=== PATIENT | male | born 1995 | race Caucasian/White ===

== ENCOUNTER 2019-07-25 23:21 | Emergency (ER) | payer BC ==
--- NOTE | 2019-07-25 23:33 | EDM.PDOC ---
ED HPI GENERAL MEDICAL PROBLEM - General Chief Complaint: Abdominal Pain Stated Complaint: UPPER ABD PAIN Time Seen by Provider: 07/25/19 23:40 Source of Information: Reports: Patient History Limitations: Reports: No Limitations, Intoxication - History of Present Illness Onset: Today Onset Date: 07/25/19 Onset Time: 22:30 Duration: Intermittent Location: Reports: Abdomen Quality: Reports: Sharp, Stabbing Severity: Severe Improves with: Reports: Other (Upright posture) Worsens with: Reports: Other (Lying down) Context: Reports: Other (After imbibing 12 beers today) Associated Symptoms: Denies: Confusion, Cough, Fever/Chills, Nausea/Vomiting epigastric Pain Score (Numeric/FACES): 7 - Related Data Allergies Allergy/AdvReac Type Severity Reaction Status Date / Time No Known Allergies Allergy Verified 07/25/19 23:31 Home Meds: Home Meds NK [No Known Home Meds] 07/25/19 [History] Past Medical History - Past Health History Medical/Surgical History: Denies Medical/Surgical History ED ROS GENERAL - Review of Systems Review Of Systems: See Below Constitutional: Reports: Decreased Appetite. Denies: Fever HEENT: Reports: No Symptoms Respiratory: Denies: Shortness of Breath Cardiovascular: Denies: Chest Pain GI/Abdominal: Reports: Abdominal Pain, Decreased Appetite, Nausea. Denies: Vomiting Musculoskeletal: Reports: No Symptoms Skin: Denies: Rash Neurological: Reports: No Symptoms Psychiatric: Reports: Agitation, Anxiety Hematologic/Lymphatic: Reports: No Symptoms ED EXAM, GI/ABD - Physical Exam Exam: See Below Text/Narrative:: Outside today at a picnic so exposed to multiple pollen scription given forAlbuterol inhaler to be obtained through [facility]. Definite odor of alcohol Exam Limited By: No Limitations General Appearance: Alert, WD/WN, Severe Distress Eyes: Bilateral: Normal Appearance, EOMI Ears: Normal External Exam Nose: Normal Inspection Throat/Mouth: Normal Inspection Neck: Normal Inspection Respiratory/Chest: No Respiratory Distress, Lungs Clear Cardiovascular: Normal Peripheral Pulses, Regular Rate, Rhythm GI/Abdominal Exam: No Distention (When the patient is lying down, the abdomen becomes rigid and I cannot check for a positive Tejada's or Mitchell sign), Rigid, Abnormal Bowel Sounds (No bowel sounds heard) Extremities: Normal Inspection, Normal Range of Motion Neurological: Alert, Oriented EKG INTERPRETATION EKG Date: 07/25/19 Time: 23:55 Rhythm: NSR [place]: Normal P-Wave: Present QRS: Normal ST-T: Normal Comparison: NA - No Prior EKG Course - Vital Signs Text/Narrative:: He is in agony when he lies down flat for abdominal exam. He absolutely refuses pain medication and states that he feels better when he stands upright. Differential diagnosis includes peptic ulcer disease, gastritis, perforated peptic ulcer, cholelithiasis, cholecystitis, pancreatitis, inferior ID. EKG & Laboratory evaluation essentially unremarkable except for elevated blood alcohol. CT results state "no acute findings to explain the patient's symptoms " Last Recorded V/S: Last Vital Signs Temp 36.2 C 07/25/19 23:33 Pulse 95 07/25/19 23:33 Resp 18 07/25/19 23:33 BP 136/59 L 07/25/19 23:33 Pulse Ox 98 07/25/19 23:33 - Orders/Labs/Meds Orders: Active Orders 24 hr Category Date Time Status EKG Documentation Completion [RC] ASDIRECTED Care 07/25/19 23:46 Active Sodium Chloride 0.9% [Normal Saline] 80 ml Med 07/26/19 00:45 Active IV ASDIRECTED EKG 12 Lead [EK] Stat Ther 07/25/19 23:45 Ordered Medication Orders Sodium Chloride (Normal Saline) 80 mls @ 3.5 mls/sec IV ASDIRECTED KAYLIE Last Admin: 07/26/19 00:41 Dose: 3.5 mls/sec Labs: Laboratory Tests 07/25/19 07/25/19 07/25/19 Range/Units 23:54 23:54 23:54 WBC 12.1 H (4.5-11.0) K/uL RBC 4.69 (4.30-5.90) M/uL Hgb 14.1 (12.0-15.0) g/dL Hct 41.3 (40.0-54.0) % MCV 88 (80-98) fL MCH 30 (27-31) pg MCHC 34 (32-36) % Plt Count 297 (150-400) K/uL PT 10.8 (9.5-12.0) sec INR 1.00 (0.80-1.20) Sodium 140 (140-148) mmol/L Potassium 3.4 L (3.6-5.2) mmol/L Chloride 103 (100-108) mmol/L Carbon Dioxide 26 (21-32) mmol/L Anion Gap 14.4 H (5.0-14.0) mmol/L BUN 14 (7-18) mg/dL Creatinine 1.0 (0.8-1.3) mg/dL Est Cr Clr Drug Dosing 130.95 mL/min Estimated GFR (MDRD) > 60 (>60) Glucose 106 (74-106) mg/dL Lactic Acid (0.4-2.0) mmol/L Calcium 8.2 L (8.5-10.1) mg/dL Total Bilirubin 0.3 (0.2-1.0) mg/dL AST 30 (15-37) U/L ALT 37 (12-78) U/L Alkaline Phosphatase 82 (46-116) U/L Troponin I (0.000-0.056) ng/mL Total Protein 7.9 (6.4-8.2) g/dL Albumin 4.3 (3.4-5.0) g/dL Globulin 3.6 H (2.3-3.5) g/dL Albumin/Globulin Ratio 1.2 (1.2-2.2) Lipase (73-393) U/L Urine Color (YELLOW) Urine Appearance (CLEAR) Urine pH (5.0-8.0) Ur Specific [place] (1.008-1.030) Urine Protein (NEGATIVE) mg/dL Urine Glucose (UA) (NEGATIVE) mg/dL Urine Ketones (NEGATIVE) mg/dL Urine Occult Blood (NEGATIVE) Urine Nitrite (NEGATIVE) Urine Bilirubin (NEGATIVE) Urine Urobilinogen (0.2-1.0) EU/dL Ur Leukocyte Esterase (NEGATIVE) Urine RBC (0-5) Urine WBC (0-5) Ur Epithelial Cells Amorphous Sediment Urine Bacteria Urine Mucus Urine Opiates Screen (NEGATIVE) Ur Oxycodone Screen (NEGATIVE) Urine Methadone Screen (NEGATIVE) Ur Propoxyphene Screen (NEGATIVE) Ur Barbiturates Screen (NEGATIVE) Ur Tricyclics Screen (NEGATIVE) Ur Phencyclidine Scrn (NEGATIVE) Ur Amphetamine Screen (NEGATIVE) U Methamphetamines Scrn (NEGATIVE) Urine MDMA Screen (NEGATIVE) U Benzodiazepines Scrn (NEGATIVE) U Cocaine Metab Screen (NEGATIVE) U Marijuana (THC) Screen (NEGATIVE) Ethyl Alcohol mg/dL 07/25/19 07/25/19 07/25/19 Range/Units 23:54 23:54 23:54 WBC (4.5-11.0) K/uL RBC (4.30-5.90) M/uL Hgb (12.0-15.0) g/dL Hct (40.0-54.0) % MCV (80-98) fL MCH (27-31) pg MCHC (32-36) % Plt Count (150-400) K/uL PT (9.5-12.0) sec INR (0.80-1.20) Sodium (140-148) mmol/L Potassium (3.6-5.2) mmol/L Chloride (100-108) mmol/L Carbon Dioxide (21-32) mmol/L Anion Gap (5.0-14.0) mmol/L BUN (7-18) mg/dL Creatinine (0.8-1.3) mg/dL Est Cr Clr Drug Dosing mL/min Estimated GFR (MDRD) (>60) Glucose (74-106) mg/dL Lactic Acid 1.6 (0.4-2.0) mmol/L Calcium (8.5-10.1) mg/dL Total Bilirubin (0.2-1.0) mg/dL AST (15-37) U/L ALT (12-78) U/L Alkaline Phosphatase (46-116) U/L Troponin I < 0.017 (0.000-0.056) ng/mL Total Protein (6.4-8.2) g/dL Albumin (3.4-5.0) g/dL Globulin (2.3-3.5) g/dL Albumin/Globulin Ratio (1.2-2.2) Lipase 210 (73-393) U/L Urine Color (YELLOW) Urine Appearance (CLEAR) Urine pH (5.0-8.0) Ur Specific [place] (1.008-1.030) Urine Protein (NEGATIVE) mg/dL Urine Glucose (UA) (NEGATIVE) mg/dL Urine Ketones (NEGATIVE) mg/dL Urine Occult Blood (NEGATIVE) Urine Nitrite (NEGATIVE) Urine Bilirubin (NEGATIVE) Urine Urobilinogen (0.2-1.0) EU/dL Ur Leukocyte Esterase (NEGATIVE) Urine RBC (0-5) Urine WBC (0-5) Ur Epithelial Cells Amorphous Sediment Urine Bacteria Urine Mucus Urine Opiates Screen (NEGATIVE) Ur Oxycodone Screen (NEGATIVE) Urine Methadone Screen (NEGATIVE) Ur Propoxyphene Screen (NEGATIVE) Ur Barbiturates Screen (NEGATIVE) Ur Tricyclics Screen (NEGATIVE) Ur Phencyclidine Scrn (NEGATIVE) Ur Amphetamine Screen (NEGATIVE) U Methamphetamines Scrn (NEGATIVE) Urine MDMA Screen (NEGATIVE) U Benzodiazepines Scrn (NEGATIVE) U Cocaine Metab Screen (NEGATIVE) U Marijuana (THC) Screen (NEGATIVE) Ethyl Alcohol 193 mg/dL 07/26/19 07/26/19 Range/Units 00:09 00:09 WBC (4.5-11.0) K/uL RBC (4.30-5.90) M/uL Hgb (12.0-15.0) g/dL Hct (40.0-54.0) % MCV (80-98) fL MCH (27-31) pg MCHC (32-36) % Plt Count (150-400) K/uL PT (9.5-12.0) sec INR (0.80-1.20) Sodium (140-148) mmol/L Potassium (3.6-5.2) mmol/L Chloride (100-108) mmol/L Carbon Dioxide (21-32) mmol/L Anion Gap (5.0-14.0) mmol/L BUN (7-18) mg/dL Creatinine (0.8-1.3) mg/dL Est Cr Clr Drug Dosing mL/min Estimated GFR (MDRD) (>60) Glucose (74-106) mg/dL Lactic Acid (0.4-2.0) mmol/L Calcium (8.5-10.1) mg/dL Total Bilirubin (0.2-1.0) mg/dL AST (15-37) U/L ALT (12-78) U/L Alkaline Phosphatase (46-116) U/L Troponin I (0.000-0.056) ng/mL Total Protein (6.4-8.2) g/dL Albumin (3.4-5.0) g/dL Globulin (2.3-3.5) g/dL Albumin/Globulin Ratio (1.2-2.2) Lipase (73-393) U/L Urine Color Yellow (YELLOW) Urine Appearance Clear (CLEAR) Urine pH 6.0 (5.0-8.0) Ur Specific [place] 1.020 (1.008-1.030) Urine Protein Negative (NEGATIVE) mg/dL Urine Glucose (UA) Negative (NEGATIVE) mg/dL Urine Ketones Negative (NEGATIVE) mg/dL Urine Occult Blood Negative (NEGATIVE) Urine Nitrite Negative (NEGATIVE) Urine Bilirubin Negative (NEGATIVE) Urine Urobilinogen 0.2 (0.2-1.0) EU/dL Ur Leukocyte Esterase Negative (NEGATIVE) Urine RBC 0-5 (0-5) Urine WBC 0-5 (0-5) Ur Epithelial Cells Rare Amorphous Sediment Not seen Urine Bacteria Few Urine Mucus Not seen Urine Opiates Screen Negative (NEGATIVE) Ur Oxycodone Screen Negative (NEGATIVE) Urine Methadone Screen Negative (NEGATIVE) Ur Propoxyphene Screen Negative (NEGATIVE) Ur Barbiturates Screen Negative (NEGATIVE) Ur Tricyclics Screen Negative (NEGATIVE) Ur Phencyclidine Scrn Negative (NEGATIVE) Ur Amphetamine Screen Negative (NEGATIVE) U Methamphetamines Scrn Negative (NEGATIVE) Urine MDMA Screen Negative (NEGATIVE) U Benzodiazepines Scrn Negative (NEGATIVE) U Cocaine Metab Screen Negative (NEGATIVE) U Marijuana (THC) Screen Negative (NEGATIVE) Ethyl Alcohol mg/dL Meds: Medications Generic Name Dose Route Start Last Admin Trade Name Freq PRN Reason Stop Dose Admin Sodium Chloride 80 mls @ 3.5 mls/sec 07/26/19 00:45 07/26/19 00:41 Normal Saline IV 3.5 mls/sec ASDIRECTED KAYLIE Administration Discontinued Medications Generic Name Dose Route Start Last Admin Trade Name Freq PRN Reason Stop Dose Admin Hydromorphone HCl 0.5 mg 07/25/19 23:47 Dilaudid IVPUSH 07/25/19 23:48 ONETIME ONE Sodium Chloride 1,000 mls @ 999 mls/hr 07/25/19 23:47 07/26/19 00:00 Normal Saline IV 07/26/19 00:47 999 mls/hr .BOLUS ONE Administration Iopamidol 132 ml 07/26/19 00:32 07/26/19 00:41 Isovue-300 (61%) IV 07/26/19 00:33 132 ml . DIRECTED ONE Administration Ondansetron HCl 4 mg 07/25/19 23:47 Zofran IVPUSH 07/25/19 23:48 ONETIME ONE Departure - Departure Time of Disposition: 01:43 Disposition: Home, Self-Care 01 Clinical Impression: Abdominal pain, Gastritis, Alcohol intoxication - Discharge Information Instructions: Gastritis, Adult, [id number], Binge-Drinking Information, Adult Referrals: PCP,None [Primary Care Provider] - Forms: ED Department Discharge Additional Instructions: Try to decrease your alcohol intake. Consider use of [id number] antacid several times a day (Tums or Prilosec). Sepsis Event Note - Focused Exam Vital Signs: Vital Signs Temp Pulse Resp BP Pulse Ox 07/25/19 23:33 36.2 C 95 18 136/59 L 98 Date Exam was Performed: 07/26/19 Time Exam was Performed: 01:41 - My Orders Last 24 Hours: My Active Orders 07/25/19 23:45 EKG 12 Lead [EK] Stat 07/25/19 23:46 EKG Documentation Completion [RC] ASDIRECTED 07/26/19 00:45 Sodium Chloride 0.9% [Normal Saline] 80 ml IV ASDIRECTED - Assessment/Plan Last 24 Hours: My Active Orders 07/25/19 23:45 EKG 12 Lead [EK] Stat 07/25/19 23:46 EKG Documentation Completion [RC] ASDIRECTED 07/26/19 00:45 Sodium Chloride 0.9% [Normal Saline] 80 ml IV ASDIRECTED
[2019-07-25] MEDS ORDERED: Sodium Chloride 0.9% 1,000 ML IV ONE (23:47)
[2019-07-25] MEDS ORDERED: HYDROmorphone 0.5 MG/0.5 ML Syringe IVPUSH ONE (23:47)
[2019-07-25] MEDS ORDERED: Ondansetron 4 MG/2 ML SDV IVPUSH ONE (23:47)
[2019-07-26] MEDS ORDERED: Iopamidol 612 MG/ML 150 ML Bottle IV ONE (00:32)
[2019-07-26] MEDS ORDERED: Sodium Chloride 0.9% 80 ML IV SCH (00:45)
--- NOTE | 2019-07-26 01:37 | CRLCT ---
INDICATION: Severe epigastric pain TECHNIQUE: Axial images were obtained from the diaphragm to the pubic symphysis. Reformats were obtained in the coronal and sagittal plane. IV Contrast: 132 cc Isovue-300 Oral Contrast: None COMPARISON: None. FINDINGS: Lower chest: Trace basilar discoid atelectasis. Liver: Unremarkable. Normal in size and attenuation. No masses. Gallbladder and bile ducts: Unremarkable. No stones or inflammation. No biliary dilatation. Spleen: Unremarkable. Normal in size without mass. Pancreas: Unremarkable. No mass or inflammation. Adrenal glands: Right adrenal calcifications suggesting prior infection or hemorrhage Kidneys: Unremarkable. No masses, stones, or hydronephrosis. Vasculature: Unremarkable. GI tract: Stomach is unremarkable. There are dilated loops of large or small intestine. Appendix unremarkable. Pelvis: Unremarkable. Bones: Partial sacralization on the left at L5-S1. IMPRESSION: No acute findings to explain the patient`s symptoms. No dilated bowel or localized inflammation. Please note that all CT scans at this facility use dose modulation, iterative reconstruction, and/or weight-based dosing when appropriate to reduce radiation dose to as low as reasonably achievable. Dictated by Evens Stephenson MD @ Jul 26 2019 1:31AM Signed by Dr. Evens Stephenson @ Jul 26 2019 1:36AM
== END 2019-07-26 01:47 | disposition home or self-care (01) ==
LOC: JP.ED 23:21 → MERGE 23:21 → JP.ED 07-26 01:47
DX: K29.70 Gastritis, unspecified, without bleeding (principal); F10.129 Alcohol abuse with intoxication, unspecified; Y90.6 Blood alcohol level of 120-199 mg/100 ml
CPT/HCPCS: 36415; 74177; 80053; 80305; 80307; 81001; 83605; 83690; 84484; 85027; 85610; 93005; 96360; 99284; J7030; J7050; Q9967